=== PATIENT | male | born 1990 | race African-American/Black ===

== ENCOUNTER 2018-04-01 10:11 | Emergency (ER) | payer MEDICAID, OTHER ==
[~2018-04-01] VITALS: Ht 172.7 cm; Wt 77.1 kg
[2018-04-01 10:19] VITALS: BP 139/78
[2018-04-01] MEDS ORDERED: IBUPROFEN 800 MG TAB PO ONE (12:15)
== END 2018-04-01 12:21 | disposition home or self-care (01) ==
LOC: ER 10:11
DX: J02.0 Streptococcal pharyngitis (principal)